=== PATIENT | female | born 1945 | race African-American/Black ===

== ENCOUNTER 2017-04-09 13:44 | Emergency (ER) | payer MEDICARE, MEDICAID ==
[~2017-04-09] VITALS: Ht 160 cm; Wt 61.0 kg
[~2017-04-09 13:44] MED LIST: BETAM.05%T TOP; HYDR-3535 PO; SIMV20 PO; TRAZ50TA4 PO
[2017-04-09 13:48] VITALS: BP 133/72; PULSE 17; PULSE 64; RESP 18; TEMP 98.4; O2SAT 98
[2017-04-09 17:00] VITALS: BP 175/91; PULSE 66; RESP 20; O2SAT 100
[2017-04-09] MEDS ORDERED: SODIUM CHLOR 0.9% 1000 ML INJ 1,000 ML IV ONE (17:30)
[2017-04-09] MEDS ORDERED: SODIUM CHLORIDE 0.9% FLUSH 10 ML FLUSH IVF PRN (17:30)
[2017-04-09 17:56] LABS: AUTOMATED NEUTROPHIL # 6.4 TH/MM3 (1.8-7.7); BASOPHIL % 0.3 % (0.0-2.0); HEMATOCRIT 38.2 % (35.0-46.0); HEMO FLAGS DIFF FINAL; LYMPHOCYTE # 1.4 TH/MM3 (1.0-4.8); MEAN CELL VOLUME 96.6 FL (80.0-100.0); MEAN CORPUSCULAR HEMOGLOBIN 32.5 PG (27.0-34.0); MEAN CORPUSCULAR HGB CONC 33.6 % (32.0-36.0); MONO % 2.8 % (0.0-8.0); NEUT % 79.9 % (16.0-70.0); PLATELET COUNT 184 TH/MM3 (150-450); RED BLOOD COUNT 3.95 MIL/MM3 (4.00-5.30); RED CELL DISTRIBUTION WIDTH 14.8 % (11.6-17.2)
--- NOTE | 2017-04-09 18:04 | RADRPT ---
EXAM DATE/TIME: 04/09/2017 17:51 [facility] COMPARISON: No previous studies available for comparison. INDICATIONS : Syncopal episode. MEDICAL HISTORY : None. SURGICAL HISTORY : None. ENCOUNTER: Initial ACUITY: 1 day PAIN SCORE: 0/10 LOCATION: Bilateral chest FINDINGS: A single view of the chest demonstrates the lungs to be symmetrically aerated without evidence of mas s, infiltrate or effusion. The cardiomediastinal contours are unremarkable. Osseous structures are intact. CONCLUSION: No evidence of acute cardiopulmonary disease. Guy Ramirez MD on April 09, 2017 at 18:02 Board Certified Radiologist. This report was verified electronically.
[2017-04-09 18:12] LABS: PROTHROMBIN TIME - PATIENT 10.5 SEC (9.8-11.6)
[2017-04-09] MEDS ORDERED: TRAZ100T6 PO (18:14)
[2017-04-09] MEDS ORDERED: TRIA.1%T TOPICAL (18:14)
[2017-04-09] MEDS ORDERED: HYDR-3366 PO (18:14)
[2017-04-09] MEDS ORDERED: ROBA750T PO (18:14)
[2017-04-09] MEDS ORDERED: COLA100C PO (18:14)
[2017-04-09] MEDS ORDERED: DOXY100C PO (18:14)
[2017-04-09 18:19] LABS: ALKALINE PHOSPHATASE 65 U/L (45-117); ALT (GPT) 36 U/L (10-53); ANION GAP 11 MEQ/L (5-15); AST (GOT) 42 U/L (15-37); BICARBONATE 24.5 MEQ/L (21.0-32.0); BLOOD UREA NITROGEN 8 MG/DL (7-18); CHLORIDE 98 MEQ/L (98-107); CREATINE KINASE 92 U/L (26-192); GLOMERULAR FILTRATION RATE 100 ML/MIN (>89); MAGNESIUM 1.5 MG/DL (1.5-2.5); POTASSIUM 4.5 MEQ/L (3.5-5.1); SODIUM (NA) 133 MEQ/L (136-145); TOTAL BILIRUBIN ADULT 0.5 MG/DL (0.2-1.0)
--- NOTE | 2017-04-09 18:19 | PD ---
HPI Chief Complaint: Syncope/Near-Syncope Time Seen by Provider: 17:23 Travel History International Travel<30 days: No Contact w/Intl Traveler<30days: No Traveled to known affect area: No History of Present Illness HPI 71 YO F presents to the ED for evaluation after syncopal episode today. The patient states that she was standing but woke up on the floor. She denies associated dizziness, headaches, vision changes, palpitations, shortness of breath, nausea or vomiting. She does endorse a few days history of diarrhea which she attributes to taking a stool softener after having a couple days of constipation. She denies fever, chills, changes in medications. She is a daily drinker, last drink last night. She is a nonsmoker. PFSH Past Medical History Arthritis: Yes Asthma: No Blood Disorders: No Anxiety: Yes Depression: Yes Heart Rhythm Problems: No Cancer: No Cardiovascular Problems: Yes High Cholesterol: No Chest Pain: No Congestive Heart Failure: No COPD: No Cerebrovascular Accident: No Diabetes: No Diminished Hearing: Yes (RIGHT EAR) Endocrine: No Gastrointestinal Disorders: Yes GERD: No Glaucoma: No Genitourinary: No Headaches: No Hepatitis: No Hiatal Hernia: No Hypertension: Yes Immune Disorder: No Kidney Stones: No Musculoskeletal: Yes (BAD KNEES) Neurologic: Yes (HEADACHES) Psychiatric: Yes Reproductive: No Respiratory: No Immunizations Current: Yes Myocardial Infarction: No Renal Failure: No Seizures: Yes Sickle Cell Disease: No Sleep Apnea: No Thyroid Disease: Yes Ulcer: No Menopausal: Yes : 4 Para: 3 Miscarriage: 1 Tubal Ligation: Yes Past Surgical History AICD: No Pacemaker: No Other Surgery: Yes (tubal ligation) Social History Alcohol Use: Yes (DAILY) Tobacco Use: No Substance Use: No Allergies-Medications (Allergen,Severity, Reaction): Coded Allergies: grapefruit (Unverified Allergy, Severe, Rash, 04/09/17) tomato (Unverified Allergy, Severe, Rash, 04/09/17) Reported Meds & Prescriptions Reported Meds & Active Scripts Active Reported Trazodone (Trazodone HCl) 100 Mg Tablet 100 Mg PO HS Colace (Docusate Sodium) 100 Mg Capsule 100 Mg PO BID [place] (Hydrocodone-Acetaminophen) 10-325 Mg Tab 1 Tab PO Q6H PRN Robaxin (Methocarbamol) 750 Mg Tab 750 Mg PO QID Doxycycline Hyclate 100 Mg Cap 100 Mg PO BID Triamcinolone Topical (Triamcinolone Acetonide) 0.1% Cream 1 Applic TOPICAL BID 14 Days Review of Systems Except as stated in HPI: all other systems reviewed are Neg Physical Exam Narrative GENERAL: Well-nourished, well-developed thin black female in no acute distress.. SKIN: Focused skin assessment warm/dry. HEAD: Normocephalic. EYES: No scleral icterus. No injection or drainage. NECK: Supple, trachea midline. No JVD or lymphadenopathy. CARDIOVASCULAR: Regular rate and rhythm without murmurs, gallops, or rubs. RESPIRATORY: Breath sounds clear and equal bilaterally. No accessory muscle use. GASTROINTESTINAL: Abdomen soft, non-tender, nondistended. Active bowel sounds. MUSCULOSKELETAL: No cyanosis, or edema. The patient moves extremities spontaneously. NEUROLOGICAL: Awake and alert. Cranial nerves II through XII intact. Motor and sensory grossly within normal limits. Five out of 5 muscle strength in all muscle groups. Normal speech. BACK: Nontender without obvious deformity. No CVA tenderness. Data Data Last Documented VS Vital Signs Date Time Temp Pulse Resp B/P (MAP) Pulse Ox O2 Delivery O2 Flow Rate FiO2 04/09/17 22:06 04/09/17 20:26 78 66 04/09/17 19:43 16 100 Room Air 04/09/17 13:48 98.4 Orders Orders Electrocardiogram (04/09/17 14:32) Complete Blood Count With Diff (04/09/17 17:30) Comprehensive Metabolic Panel (04/09/17 17:30) Magnesium (Mg) (04/09/17 17:30) Ckmb (Isoenzyme) Profile (04/09/17 17:30) Troponin I (04/09/17 17:30) Act Partial Throm Time (Ptt) (04/09/17 17:30) Prothrombin Time / Inr (Pt) (04/09/17 17:30) Urinalysis - C+S If Indicated (04/09/17 17:30) Chest, Single Ap (04/09/17 17:30) Ct Brain W/O Iv Contrast(Rout) (04/09/17 17:30) Ecg Monitoring (04/09/17 17:30) Iv Access Insert/Monitor (04/09/17 17:30) Oximetry (04/09/17 17:30) Sodium Chloride 0.9% Flush (Ns Flush) (04/09/17 17:30) Sodium Chlor 0.9% 1000 Ml Inj (Ns 1000 M (04/09/17 17:30) Orthostatic Vital Signs (04/09/17 19:46) Labs Laboratory Tests Test 04/09/17 17:38 04/09/17 18:18 White Blood Count 8.0 TH/MM3 Red Blood Count 3.95 MIL/MM3 Hemoglobin 12.8 GM/DL Hematocrit 38.2 % Mean Corpuscular Volume 96.6 FL Mean Corpuscular Hemoglobin 32.5 PG Mean Corpuscular Hemoglobin Concent 33.6 % Red Cell Distribution Width 14.8 % Platelet Count 184 TH/MM3 Mean Platelet Volume 8.1 FL Neutrophils (%) (Auto) 79.9 % Lymphocytes (%) (Auto) 17.0 % Monocytes (%) (Auto) 2.8 % Eosinophils (%) (Auto) 0.0 % Basophils (%) (Auto) 0.3 % Neutrophils # (Auto) 6.4 TH/MM3 Lymphocytes # (Auto) 1.4 TH/MM3 Monocytes # (Auto) 0.2 TH/MM3 Eosinophils # (Auto) 0.0 TH/MM3 Basophils # (Auto) 0.0 TH/MM3 CBC Comment DIFF FINAL Differential Comment Prothrombin Time 10.5 SEC Prothromb Time International Ratio 1.0 RATIO Activated Partial Thromboplast Time 24.0 SEC Blood Urea Nitrogen 8 MG/DL Creatinine 0.70 MG/DL Random Glucose 74 MG/DL Total Protein 8.2 GM/DL Albumin 3.9 GM/DL Calcium Level 8.7 MG/DL Magnesium Level 1.5 MG/DL Alkaline Phosphatase 65 U/L Aspartate Amino Transf (AST/SGOT) 42 U/L Alanine Aminotransferase (ALT/SGPT) 36 U/L Total Bilirubin 0.5 MG/DL Sodium Level 133 MEQ/L Potassium Level 4.5 MEQ/L Chloride Level 98 MEQ/L Carbon Dioxide Level 24.5 MEQ/L Anion Gap 11 MEQ/L Estimat Glomerular Filtration Rate 100 ML/MIN Total Creatine Kinase 92 U/L Troponin I LESS THAN 0.02 NG/ML Urine Color YELLOW Urine Turbidity CLEAR Urine pH 6.0 Urine Specific [place] 1.013 Urine Protein NEG mg/dL Urine Glucose (UA) NEG mg/dL Urine Ketones 10 mg/dL Urine Occult Blood NEG Urine Nitrite NEG Urine Bilirubin NEG Urine Urobilinogen LESS THAN 2.0 MG/DL Urine Leukocyte Esterase TRACE Urine RBC LESS THAN 1 /hpf Urine WBC 1 /hpf Urine Squamous Epithelial Cells 1 /hpf Microscopic Urinalysis Comment CULT NOT INDICATED MDM Medical Decision Making Medical Screen Exam Complete: Yes Emergency Medical Condition: Yes Interpretation(s) EKG rate 66, sinus rhythm. Normal intervals. LAD. No acute ST changes. Reviewed by Dr. Torres. Differential Diagnosis cardiogenic syncope versus metabolic drainage versus orthostatic hypotension versus chronic alcoholism versus Narrative Course 71 YO F presents to the ED for evaluation after syncopal episode today. The patient states that she was standing but woke up on the floor. She denies associated dizziness, headaches, vision changes, palpitations, shortness of breath, nausea or vomiting. She does endorse a few days history of diarrhea which she attributes to taking a stool softener after having a couple days of constipation. She denies fever, chills, changes in medications. She is a daily drinker, last drink last night. She is a nonsmoker. Vitals reviewed. Orthostatic vitals negative. Physical exam is a nontoxic-appearing black female in no acute distress. No focal neuro deficits. Equal strength in the lower extremities. CBC, CMP, UA, coags all without concerning abnormalities. Cardiac enzymes negative 1. CT of the head with no acute findings. Chest x- ray with no acute cardiopulmonary findings. Orthostatic vitals unequivocal Review of the record reveals the patient's been here with similar complaints in the past. She does not think this is related to chronic alcoholism. She's had a syncope workup that was negative. I think she can follow-up with her primary care provider for further evaluation. Patient is agreeable with this plan. She is stable and discharged home. Diagnosis Primary Impression: Syncope Qualified Codes: R55 - Syncope and collapse Referrals: Primary Care Physician Patient Instructions: General Instructions, Near Syncope (ED), Syncope (ED) Additional Instructions: Rest, hydrate. Avoid drinking alcohol. Take all at home medications as previously prescribed. Follow up with your primary care provider. Return to the ED for any urgent or emergent medical condition. Disposition: 01 DISCHARGE HOME Condition: Stable Iveth Kasper Apr 09, 2017 18:19
[2017-04-09 18:48] LABS: BLOOD, URINE NEG (NEG); COMMENT (UR) CULT NOT INDICATED; CULTURE IF INDICATED CULT NOT INDICATED; GLUCOSE,URINE NEG (NEG); KETONE, URINE 10 mg/dL (NEG); NITRITE,URINE NEG (NEG); SQUAMOUS EPITHELIAL CELL URINE 1 /hpf (0-5); URINE COLOR YELLOW (YELLW/STRAW)
--- NOTE | 2017-04-09 19:13 | RADRPT ---
EXAM DATE/TIME: 04/09/2017 18:55 [facility] COMPARISON: CT BRAIN W/O CONTRAST, February 07, 2014, 2:25. INDICATIONS : Syncopal episode. Complains of dizziness. RADIATION DOSE: 32.47 CTDIvol (mGy) MEDICAL HISTORY : Hypertension. SURGICAL HISTORY : Tubal ligation. ENCOUNTER: Initial ACUITY: 1 day PAIN SCALE: 2/10 LOCATION: cranial TECHNIQUE: Multiple contiguous axial images were obtained of the head. Using automated exposure control and adj ustment of the mA and/or kV according to patient size, radiation dose was kept as low as reasonably a chievable to obtain optimal diagnostic quality images. DICOM format image data is available electro nically for review and comparison. FINDINGS: CEREBRUM: The ventricles are normal for age. No evidence of midline shift, mass lesion, hemorrhage or acute in farction. No extra-axial fluid collections are seen. Mild chronic low-attenuation in the periventric ular white matter and an old right basal ganglia lacunar infarct are unchanged. POSTERIOR FOSSA: The cerebellum and brainstem are intact. The 4th ventricle is midline. The cerebellopontine angle i s unremarkable. EXTRACRANIAL: The visualized portion of the orbits is intact. Chronic opacification again noted of the right mastoi d air cells. SKULL: The calvaria is intact. No evidence of skull fracture. CONCLUSION: 1. No acute intracranial abnormality. 2. Mild, chronic white matter changes and an old right basal ganglia lacunar infarct are again noted. 3. Chronic opacification of the right mastoid air cells again noted. Guy Ramirez MD on April 09, 2017 at 19:10 Board Certified Radiologist. This report was verified electronically.
[2017-04-09 19:43] VITALS: BP 150/83; PULSE 67; RESP 16; O2SAT 100
[2017-04-09 20:26] VITALS: BP_SYST 158; BP_SYST 166; BP_SYST 184; BP_DIAS 77; BP_DIAS 83; BP_DIAS 95
--- NOTE | 2017-04-10 21:49 | EKG ---
Date Performed: 04/09/2017 Time Performed: 14:38:35 PTAGE: 71 years EKG: Sinus rhythm MARKED LEFT AXIS DEVIATION ABNORMAL ECG Compared to prior tracing no significant change DOCTOR: Radha Freeman Interpretating Date/Time 04/10/2017 21:49:45
== END 2017-04-09 21:30 | disposition home or self-care (01) ==
LOC: NEPC 13:44
DX: R55 Syncope and collapse (principal); R19.7 Diarrhea, unspecified; R94.31 Abnormal electrocardiogram [ECG] [EKG]; M19.90 Unspecified osteoarthritis, unspecified site; F41.9 Anxiety disorder, unspecified; F32.9 Major depressive disorder, single episode, unspecified; I10 Essential (primary) hypertension; R56.9 Unspecified convulsions; E07.9 Disorder of thyroid, unspecified
CPT/HCPCS: 70450; 71010; 80053; 81001; 82550; 83735; 84484; 85025; 85610; 85730; 93005; 96360; 99285; J7030